=== PATIENT | female | born 1960 | race Caucasian/White ===

== ENCOUNTER 2021-03-12 19:07 | Inpatient (IN) ==
[2021-03-12] MEDS ORDERED: Ondansetron ODT 4 MG TAB.RAPDIS SL PRN (21:54)
[2021-03-12] MEDS ORDERED: Melatonin 3 MG TABLET PO PRN (21:54)
[2021-03-12] MEDS ORDERED: Naloxone 0.4 MG/ML INJ IVP PRN ×2 (21:54→22:48)
[2021-03-12] MEDS: Acetaminophen 325 MG TABLET PO PRN (23:18)
[2021-03-12] MEDS ORDERED: *HR* Labetalol 20 MG/4 ML SYRINGE IVP ONE (23:46)
[2021-03-13] MEDS: *HR* HYDROcodone/Acet 5/325 mg TABLET PO PRN ×3 (00:18→10:45)
[2021-03-13] MEDS ORDERED: Furosemide 40 MG/4 ML VIAL IVP ONE (00:19)
[2021-03-13] MEDS ORDERED: Perflutren Lipid Microsphere 1.3 ML in 0.9 % Sodium Chloride 8.7 ML IVP PRN (01:50)
[2021-03-13] MEDS ORDERED: *HR* Heparin 5,000 UNIT/ML VIAL IVP ONE (04:57)
[2021-03-13] MEDS ORDERED: *HR* Heparin 5,000 UNIT/ML VIAL IVP PRN (04:57)
[2021-03-13] MEDS: Heparin 25,000 UNIT/250 ML 25,000 UNIT/250 ML IV.SOLN IVC SCH (05:49)
[2021-03-13] MEDS: niCARdipine 20 MG/200 ML MLS IVC SCH ×2 (05:51→10:41)
[2021-03-13 06:51] LABS: Hematocrit 26.4 % (35.3-44.9); Hemoglobin 8.8 g/dL (11.5-15.4); Mean Corpuscular HGB Conc 33.3 g/dL (31.6-35.5); Mean Corpuscular Hemoglobin 33.2 pg (28.0-33.3); Mean Corpuscular Volume 99.6 fL (83.0-100.0); Mean Platelet Volume 9.9 fL (9.4-12.4); Platelet Count 163 K/mcL (140-400); Red Blood Count 2.65 M/mcL (3.82-4.97)
[2021-03-13 06:59] LABS: INR 1.2; Prothrombin Time 13.1 Seconds (9.4-12.1)
[2021-03-13 07:03] LABS: Heparin anti-factor XA UFH 1.19 IU/mL (0.30-0.70)
[2021-03-13 07:08] LABS: BUN/Creatinine Ratio 13 (6-26); Blood Urea Nitrogen 15 mg/dL (8-23); Calcium 8.9 mg/dL (8.6-10.3); Carbon Dioxide 25 mEq/L (23-29); Chloride 103 mEq/L (98-107); Glucose 113 mg/dL (70-105); Osmolality,Calculated 286 (280-300); Potassium 3.3 mEq/L (3.5-5.1); Sodium 137 mEq/L (136-145); eGFR For African Americans > 60 (> 60); eGFR For Non-African Americans 50 (> 60)
[2021-03-13] MEDS ORDERED: Ipratropium/Albuterol Neb 3 ML IH PRN (07:38)
[2021-03-13] MEDS: Metoprolol XL (24 HR) Succ 25 MG TAB.ER.24H PO SCH (08:20)
[2021-03-13] MEDS: Aspirin Enteric Coated 81 MG Tablet PO SCH (08:21)
[2021-03-13] MEDS ORDERED: Furosemide 40 MG/4 ML VIAL IVP SCH (09:00)
[2021-03-13] MEDS ORDERED: lisinopriL 5 MG TABLET PO SCH (11:45)
[2021-03-13] MEDS: *HR* Heparin 5,000 UNIT/ML VIAL IVP PRN ×2 (13:09→20:13)
[2021-03-13] MEDS ORDERED: lisinopriL 20 MG TABLET PO SCH (13:59)
[2021-03-13] MEDS: Acetaminophen 325 MG TABLET PO PRN (15:47)
[2021-03-14 02:51] LABS: Bacteria,Urine Many per hpf (None-Few); Bilirubin,Urine Small (Negative); Blood,Urine Trace (Negative); Clarity,Urine Ex.Turbid (Clear); Color,Urine Yellow (Yellow); Glucose,Urine (UA) Normal (Normal); Ketones,Urine Trace mg/dL (Negative); Leukocyte Esterase,Urine Large (Negative); Mucus,Urine Few per lpf (None-Few); Nitrite,Urine Negative (Negative); PH,Urine 5.5 pH Units (5.0-8.0); Protein,Urine >=300 mg/dL (Neg-Trace); RBC,Urine 15-30 per hpf (0-3); Specific Gravity,Urine 1.029 (1.010-1.025); Squamous Epithelial Cell,Urine Moderate per hpf (None-Few); WBC,Urine TNTC per hpf (0-3)
[2021-03-14 03:08] LABS: Basophils # 0.1 K/mcL (0.0-0.2); Basophils % 0.6 %; Eosinophils # 0.2 K/mcL (0.0-0.6); Eosinophils % 2.1 %; Hematocrit 28.8 % (35.3-44.9); Hemoglobin 9.8 g/dL (11.5-15.4); Immature Granulocytes % 0.3 % (0-4); Lymphocytes # 1.5 K/mcL (0.6-4.6); Lymphocytes % 19.6 %; Mean Platelet Volume 10.3 fL (9.4-12.4); Monocytes # 0.7 K/mcL (0.0-1.3); Monocytes % 8.5 %; Neutrophils # 5.4 K/mcL (1.6-8.9); Platelet Count 177 K/mcL (140-400); Red Blood Count 2.88 M/mcL (3.82-4.97); Segmented Neutrophils % 68.9 %; White Blood Count 7.8 K/mcL (4.3-11.1)
[2021-03-14 03:26] LABS: Calcium 9.5 mg/dL (8.6-10.3); Magnesium 2.2 mg/dL (1.6-2.6); Phosphorous 5.3 mg/dL (2.7-4.5); Potassium 3.9 mEq/L (3.5-5.1)
[2021-03-14 05:52] LABS: Thyroid Stimulating Hormone 4.721 mcIU/mL (0.340-5.600)
[2021-03-14] MEDS: Metoprolol XL (24 HR) Succ 25 MG TAB.ER.24H PO SCH (07:54)
[2021-03-14] MEDS: Aspirin Enteric Coated 81 MG Tablet PO SCH (07:54)
[2021-03-14] MEDS ORDERED: lisinopriL 20 MG TABLET PO SCH (09:00)
[2021-03-14] MEDS ORDERED: Furosemide 40 MG TABLET PO SCH (09:00)
[2021-03-14] MEDS: Cefdinir 300 MG CAPSULE PO SCH (11:58)
[2021-03-14] MEDS: Heparin 25,000 UNIT/250 ML 25,000 UNIT/250 ML IV.SOLN IVC SCH (13:00)
[2021-03-14] MEDS: Ipratropium Neb 0.5 MG NEBULIZER IH SCH ×3 (15:43→20:19)
[2021-03-14 15:46] LABS: Potassium,Urine 89.1 mEq/L; Protein/Creatinine Ratio,Urine 0.38 mg/mg (0.00-0.20); Sodium, Urine 24.5 mEq/L
[2021-03-15] MEDS: Ipratropium Neb 0.5 MG NEBULIZER IH SCH ×4 (04:11→22:01)
[2021-03-15 05:47] LABS: Basophils # 0.1 K/mcL (0.0-0.2); Basophils % 0.5 %; Eosinophils # 0.4 K/mcL (0.0-0.6); Eosinophils % 3.2 %; Hematocrit 26.9 % (35.3-44.9); Immature Granulocytes % 0.4 % (0-4); Lymphocytes # 1.5 K/mcL (0.6-4.6); Lymphocytes % 13.5 %; Mean Corpuscular HGB Conc 33.5 g/dL (31.6-35.5); Mean Corpuscular Hemoglobin 33.6 pg (28.0-33.3); Mean Corpuscular Volume 100.4 fL (83.0-100.0); Mean Platelet Volume 10.4 fL (9.4-12.4); Monocytes # 0.8 K/mcL (0.0-1.3); Monocytes % 7.3 %; Neutrophils # 8.3 K/mcL (1.6-8.9); Platelet Count 159 K/mcL (140-400); Red Blood Count 2.68 M/mcL (3.82-4.97); Red Cell Distribution Width 14.6 % (11.5-14.5); Segmented Neutrophils % 75.1 %; White Blood Count 11.1 K/mcL (4.3-11.1)
[2021-03-15 06:05] LABS: Calcium 9.1 mg/dL (8.6-10.3); Potassium 4.3 mEq/L (3.5-5.1)
[2021-03-15] MEDS: Metoprolol XL (24 HR) Succ 25 MG TAB.ER.24H PO SCH (08:04)
[2021-03-15] MEDS: Aspirin Enteric Coated 81 MG Tablet PO SCH (08:04)
[2021-03-15] MEDS: Cefdinir 300 MG CAPSULE PO SCH (11:07)
[2021-03-15] MEDS: Albumin 25% 25gram/100mL 25 GM/100 ML IV.SOLN IVPB SCH ×2 (15:25→23:30)
[2021-03-15] MEDS: Heparin 25,000 UNIT/250 ML 25,000 UNIT/250 ML IV.SOLN IVC SCH (17:41)
[2021-03-15] MEDS: Acetaminophen 325 MG TABLET PO PRN (18:44)
[2021-03-16 05:00] LABS: Basophils # 0.1 K/mcL (0.0-0.2); Basophils % 0.7 %; Eosinophils # 0.4 K/mcL (0.0-0.6); Eosinophils % 4.3 %; Hematocrit 25.4 % (35.3-44.9); Hemoglobin 8.1 g/dL (11.5-15.4); Immature Granulocytes % 0.3 % (0-4); Lymphocytes # 1.8 K/mcL (0.6-4.6); Lymphocytes % 19.6 %; Mean Corpuscular HGB Conc 31.9 g/dL (31.6-35.5); Mean Corpuscular Hemoglobin 32.5 pg (28.0-33.3); Mean Platelet Volume 10.5 fL (9.4-12.4); Monocytes # 0.6 K/mcL (0.0-1.3); Monocytes % 7.1 %; Neutrophils # 6.1 K/mcL (1.6-8.9); Platelet Count 156 K/mcL (140-400); Red Blood Count 2.49 M/mcL (3.82-4.97); Red Cell Distribution Width 14.4 % (11.5-14.5)
[2021-03-16] MEDS: Ipratropium Neb 0.5 MG NEBULIZER IH SCH ×5 (05:04→19:50)
[2021-03-16 05:16] LABS: Calcium 9.6 mg/dL (8.6-10.3); Potassium 4.5 mEq/L (3.5-5.1)
[2021-03-16] MEDS: *HR* Heparin 5,000 UNIT/ML VIAL IVP PRN ×2 (05:24→19:22)
[2021-03-16] MEDS: Aspirin Enteric Coated 81 MG Tablet PO SCH (08:02)
[2021-03-16] MEDS: Metoprolol XL (24 HR) Succ 25 MG TAB.ER.24H PO SCH (08:03)
[2021-03-16] MEDS: Albumin 25% 25gram/100mL 25 GM/100 ML IV.SOLN IVPB SCH ×2 (08:03→16:00)
[2021-03-16] MEDS ORDERED: amLODIPine 5 MG TABLET PO SCH (09:00)
[2021-03-16] MEDS: Cefdinir 300 MG CAPSULE PO SCH (11:25)
[2021-03-16] MEDS: Heparin 25,000 UNIT/250 ML 25,000 UNIT/250 ML IV.SOLN IVC SCH (14:23)
[2021-03-16] MEDS: hydrALAZINE 25 MG TABLET PO SCH ×2 (16:00→23:05)
[2021-03-16] MEDS ORDERED: Albuterol 2.5 MG/3 ML NEBULIZER IH PRN (22:23)
[2021-03-16 22:24] LABS: ABG Base Excess -3 mEq/L (-2 to 3); ABG HCO3 20 mEq/L (21-27); ABG Oxygen Saturation 96 % (95-98); ABG PCO2 29 mmHg (35-45); ABG PH 7.46 pH Units (7.32-7.45); ABG PO2 78 mmHg (85-104); ABG TCO2 21 mEq/L (20-26)
[2021-03-16] MEDS: Ipratropium/Albuterol Neb 3 ML IH SCH (23:14)
[2021-03-17] MEDS ORDERED: *HR* LORazepam 0.5 MG TABLET PO ONE (00:25)
[2021-03-17 01:39] LABS: Basophils # 0.1 K/mcL (0.0-0.2); Basophils % 0.6 %; Eosinophils # 0.3 K/mcL (0.0-0.6); Eosinophils % 2.6 %; Hematocrit 28.3 % (35.3-44.9); Immature Granulocytes % 0.5 % (0-4); Lymphocytes # 1.2 K/mcL (0.6-4.6); Lymphocytes % 11.6 %; Mean Corpuscular HGB Conc 31.8 g/dL (31.6-35.5); Mean Corpuscular Hemoglobin 33.2 pg (28.0-33.3); Mean Corpuscular Volume 104.4 fL (83.0-100.0); Mean Platelet Volume 10.5 fL (9.4-12.4); Monocytes # 0.5 K/mcL (0.0-1.3); Monocytes % 5.1 %; Neutrophils # 8.2 K/mcL (1.6-8.9); Platelet Count 162 K/mcL (140-400); Red Blood Count 2.71 M/mcL (3.82-4.97); Red Cell Distribution Width 14.6 % (11.5-14.5); Segmented Neutrophils % 79.6 %; White Blood Count 10.3 K/mcL (4.3-11.1)
[2021-03-17 02:01] LABS: Calcium 10.5 mg/dL (8.6-10.3); Magnesium 2.2 mg/dL (1.6-2.6); Phosphorous 3.6 mg/dL (2.7-4.5)
[2021-03-17] MEDS: Ipratropium/Albuterol Neb 3 ML IH SCH (03:33)
[2021-03-17] MEDS: hydrALAZINE 25 MG TABLET PO SCH ×2 (08:03→17:03)
[2021-03-17] MEDS: Aspirin Enteric Coated 81 MG Tablet PO SCH (08:04)
[2021-03-17] MEDS: Metoprolol XL (24 HR) Succ 25 MG TAB.ER.24H PO SCH (08:04)
[2021-03-17] MEDS: Acetaminophen 325 MG TABLET PO PRN ×2 (08:12→17:03)
[2021-03-17] MEDS ORDERED: Metoprolol XL (24 HR) Succ 25 MG TAB.ER.24H PO SCH (09:00)
[2021-03-17] MEDS ORDERED: Ipratropium Neb 0.5 MG NEBULIZER ONE (09:33)
[2021-03-17] MEDS: Ipratropium Neb 0.5 MG NEBULIZER IH SCH ×3 (09:34→20:55)
[2021-03-17] MEDS: Heparin 25,000 UNIT/250 ML 25,000 UNIT/250 ML IV.SOLN IVC SCH (10:23)
[2021-03-17] MEDS ORDERED: Furosemide 40 MG/4 ML VIAL IVP ONE (10:56)
[2021-03-17] MEDS: Isosorbide MONOnitrate (24 HR) 30 MG TAB.ER.24H PO SCH (11:36)
[2021-03-17] MEDS: Cefdinir 300 MG CAPSULE PO SCH (11:37)
[2021-03-17] MEDS: *HR* Heparin 5,000 UNIT/ML VIAL SQ SCH (17:04)
[2021-03-18] MEDS: hydrALAZINE 25 MG TABLET PO SCH ×4 (00:04→23:15)
[2021-03-18] MEDS: Acetaminophen 325 MG TABLET PO PRN ×2 (00:05→10:21)
[2021-03-18] MEDS: Ipratropium Neb 0.5 MG NEBULIZER IH SCH ×4 (04:39→21:24)
[2021-03-18 04:59] LABS: Basophils % 0.5 %; Eosinophils # 0.3 K/mcL (0.0-0.6); Eosinophils % 4.2 %; Hemoglobin 7.7 g/dL (11.5-15.4); Immature Granulocytes % 0.3 % (0-4); Lymphocytes # 1.5 K/mcL (0.6-4.6); Lymphocytes % 25.2 %; Mean Corpuscular HGB Conc 30.8 g/dL (31.6-35.5); Mean Corpuscular Hemoglobin 32.8 pg (28.0-33.3); Mean Corpuscular Volume 106.4 fL (83.0-100.0); Mean Platelet Volume 10.6 fL (9.4-12.4); Monocytes # 0.6 K/mcL (0.0-1.3); Monocytes % 9.3 %; Neutrophils # 3.7 K/mcL (1.6-8.9); Platelet Count 148 K/mcL (140-400); Red Blood Count 2.35 M/mcL (3.82-4.97); Segmented Neutrophils % 60.5 %; White Blood Count 6.1 K/mcL (4.3-11.1)
[2021-03-18 05:16] LABS: Magnesium 2.3 mg/dL (1.6-2.6); Phosphorous 5.1 mg/dL (2.7-4.5); Potassium 4.5 mEq/L (3.5-5.1)
[2021-03-18] MEDS: *HR* Heparin 5,000 UNIT/ML VIAL SQ SCH ×2 (07:56→18:31)
[2021-03-18] MEDS: Isosorbide MONOnitrate (24 HR) 30 MG TAB.ER.24H PO SCH (07:56)
[2021-03-18] MEDS: Aspirin Enteric Coated 81 MG Tablet PO SCH (07:57)
[2021-03-18] MEDS: Metoprolol XL (24 HR) Succ 25 MG TAB.ER.24H PO SCH (07:57)
[2021-03-18] MEDS: *HR* HYDROcodone/Acet 5/325 mg TABLET PO PRN (15:35)
[2021-03-18 17:57] LABS: Hematocrit 25.9 % (35.3-44.9); Hemoglobin 8.5 g/dL (11.5-15.4)
[2021-03-18] MEDS: predniSONE 20 MG TABLET PO SCH (18:29)
[2021-03-18 18:52] LABS: Metanephrine, Plasma 0.33 nmol/L (0.00-0.49)
[2021-03-19] MEDS: Ipratropium Neb 0.5 MG NEBULIZER IH SCH ×2 (03:55→10:19)
[2021-03-19] MEDS: *HR* Heparin 5,000 UNIT/ML VIAL SQ SCH (05:16)
[2021-03-19 07:56] LABS: Basophils % 0.3 %; Hematocrit 25.2 % (35.3-44.9); Hemoglobin 8.1 g/dL (11.5-15.4); Immature Granulocytes % 0.5 % (0-4); Lymphocytes # 0.6 K/mcL (0.6-4.6); Lymphocytes % 7.8 %; Mean Corpuscular HGB Conc 32.1 g/dL (31.6-35.5); Mean Corpuscular Hemoglobin 33.5 pg (28.0-33.3); Mean Corpuscular Volume 104.1 fL (83.0-100.0); Mean Platelet Volume 10.9 fL (9.4-12.4); Monocytes # 0.2 K/mcL (0.0-1.3); Monocytes % 2.3 %; Neutrophils # 6.9 K/mcL (1.6-8.9); Platelet Count 166 K/mcL (140-400); Red Blood Count 2.42 M/mcL (3.82-4.97); Red Cell Distribution Width 14.6 % (11.5-14.5); Segmented Neutrophils % 89.1 %; White Blood Count 7.7 K/mcL (4.3-11.1)
[2021-03-19 08:17] LABS: Calcium 10.2 mg/dL (8.6-10.3); Potassium 4.7 mEq/L (3.5-5.1)
[2021-03-19] MEDS: Isosorbide MONOnitrate (24 HR) 30 MG TAB.ER.24H PO SCH (09:26)
[2021-03-19] MEDS: Aspirin Enteric Coated 81 MG Tablet PO SCH (09:26)
[2021-03-19] MEDS: hydrALAZINE 25 MG TABLET PO SCH (09:26)
[2021-03-19] MEDS: Metoprolol XL (24 HR) Succ 25 MG TAB.ER.24H PO SCH (09:26)
[2021-03-19] MEDS: predniSONE 20 MG TABLET PO SCH (09:26)
[2021-03-19] MEDS: Acetaminophen 325 MG TABLET PO PRN (11:16)
[2021-03-19 11:37] VITALS: BP 148/61; PULSE 84; TEMP 97.3; O2SAT 99
== END 2021-03-19 14:34 | disposition home or self-care (01) | DRG 280 ==
LOC: 2NNU → SUATTDRO 21:51 → 2ANU 03-18 13:46
PROVIDERS: ADMIT Internal Medicine; ATTEND Family Medicine

== ENCOUNTER 2021-04-05 02:26 | Inpatient (IN) ==
[2021-04-05] MEDS ORDERED: Ipratropium/Albuterol Neb 3 ML IH ONE (03:16)
[2021-04-05] MEDS ORDERED: Furosemide 40 MG/4 ML VIAL IVP ONE (03:16)
[2021-04-05 03:53] LABS: Basophils % 0.3 %; Eosinophils # 0.2 K/mcL (0.0-0.6); Eosinophils % 1.5 %; Hematocrit 28.4 % (35.3-44.9); Hemoglobin 9.2 g/dL (11.5-15.4); Immature Granulocytes % 0.3 % (0-4); Lymphocytes # 1.3 K/mcL (0.6-4.6); Mean Corpuscular HGB Conc 32.4 g/dL (31.6-35.5); Mean Corpuscular Hemoglobin 33.2 pg (28.0-33.3); Mean Corpuscular Volume 102.5 fL (83.0-100.0); Monocytes # 0.6 K/mcL (0.0-1.3); Monocytes % 5.3 %; Neutrophils # 9.7 K/mcL (1.6-8.9); Platelet Count 148 K/mcL (140-400); Red Blood Count 2.77 M/mcL (3.82-4.97); Segmented Neutrophils % 81.6 %; White Blood Count 11.8 K/mcL (4.3-11.1)
[2021-04-05 04:03] LABS: VBG HCO3 21 mEq/L (21-27); VBG PCO2 33 mmHg (41-51); VBG PH 7.41 pH Units (7.32-7.42); VBG PO2 104 mmHg (25-50)
[2021-04-05 04:14] LABS: Albumin/Globulin Ratio 1.9 (1.1-2.2); Bilirubin,Direct 0.3 mg/dL (0.0-0.2); Bilirubin,Indirect 1.1 mg/dL (0.0-1.0); Bilirubin,Total 1.4 mg/dL (0.3-1.0); Calcium 10.1 mg/dL (8.6-10.3); Globulin 2.6 g/dL (2.4-3.5); Potassium 3.6 mEq/L (3.5-5.1); Total Protein 7.6 g/dL (6.4-8.9); Troponin I 0.03 ng/mL (< 0.04)
[2021-04-05 04:34] LABS: Influenza A PCR Negative (Negative); Influenza B PCR Negative (Negative); Resp. Syncytial Virus PCR Negative (Negative)
[2021-04-05] MEDS ORDERED: Naloxone 0.4 MG/ML INJ IVP PRN (05:11)
[2021-04-05] MEDS ORDERED: Ondansetron 4 MG/2 ML VIAL IVP PRN (05:11)
[2021-04-05 05:54] LABS: SARS-CoV-2 by PCR (In House) Negative (Negative)
[2021-04-05] MEDS ORDERED: amLODIPine 5 MG TABLET PO SCH (09:00)
[2021-04-05] MEDS ORDERED: Metoprolol XL (24 HR) Succ 50 MG TAB.ER.24H PO SCH (09:00)
[2021-04-05] MEDS: Aspirin Enteric Coated 81 MG Tablet PO SCH (09:16)
[2021-04-05] MEDS: Isosorbide MONOnitrate (24 HR) 30 MG TAB.ER.24H PO SCH (09:17)
[2021-04-05] MEDS: hydrALAZINE 25 MG TABLET PO SCH ×3 (09:18→20:33)
[2021-04-05] MEDS: Acetaminophen 325 MG TABLET PO PRN (10:15)
[2021-04-05] MEDS ORDERED: amLODIPine 5 MG TABLET PO ONE (12:30)
[2021-04-05] MEDS ORDERED: Albuterol 2.5 MG/3 ML NEBULIZER IH PRN (12:34)
[2021-04-05] MEDS ORDERED: *HR* Labetalol 20 MG/4 ML SYRINGE IVP ONE (22:34)
[2021-04-06 02:29] LABS: Hematocrit 24.1 % (35.3-44.9); Hemoglobin 7.9 g/dL (11.5-15.4); Mean Corpuscular HGB Conc 32.8 g/dL (31.6-35.5); Mean Corpuscular Hemoglobin 33.6 pg (28.0-33.3); Mean Corpuscular Volume 102.6 fL (83.0-100.0); Mean Platelet Volume 10.1 fL (9.4-12.4); Platelet Count 140 K/mcL (140-400); Red Blood Count 2.35 M/mcL (3.82-4.97); Red Cell Distribution Width 14.9 % (11.5-14.5)
[2021-04-06 02:31] LABS: White Blood Count 5.5 K/mcL (4.3-11.1)
[2021-04-06 02:46] LABS: Calcium 9.6 mg/dL (8.6-10.3); Potassium 3.3 mEq/L (3.5-5.1)
[2021-04-06] MEDS: Aspirin Enteric Coated 81 MG Tablet PO SCH (08:28)
[2021-04-06] MEDS: carvediloL 6.25 MG TABLET PO SCH ×2 (08:28→16:03)
[2021-04-06] MEDS: Isosorbide MONOnitrate (24 HR) 30 MG TAB.ER.24H PO SCH (08:28)
[2021-04-06] MEDS: hydrALAZINE 25 MG TABLET PO SCH ×3 (08:28→20:18)
[2021-04-06] MEDS ORDERED: Furosemide 40 MG/4 ML VIAL IVP SCH (09:00)
[2021-04-06] MEDS ORDERED: amLODIPine 5 MG TABLET PO SCH (09:00)
[2021-04-06 10:31] LABS: Magnesium 2.1 mg/dL (1.6-2.6)
[2021-04-06 12:35] LABS: Hematocrit 24.3 % (35.3-44.9); Hemoglobin 7.9 g/dL (11.5-15.4)
[2021-04-06] MEDS ORDERED: SODIUM CHLORIDE/NAHCO3/KCL/PEG 4,000 ML SOLN.RECON PO ONE (17:00)
[2021-04-06] MEDS: Acetaminophen 325 MG TABLET PO PRN (20:17)
[2021-04-07] MEDS: hydrALAZINE 25 MG TABLET PO SCH ×3 (07:44→22:31)
[2021-04-07] MEDS: carvediloL 6.25 MG TABLET PO SCH ×2 (07:44→16:01)
[2021-04-07] MEDS: Isosorbide MONOnitrate (24 HR) 30 MG TAB.ER.24H PO SCH (07:44)
[2021-04-07 09:02] LABS: Hematocrit 25.8 % (35.3-44.9); Hemoglobin 8.4 g/dL (11.5-15.4); Mean Corpuscular HGB Conc 32.6 g/dL (31.6-35.5); Mean Corpuscular Hemoglobin 33.1 pg (28.0-33.3); Mean Corpuscular Volume 101.6 fL (83.0-100.0); Mean Platelet Volume 10.1 fL (9.4-12.4); Platelet Count 156 K/mcL (140-400); Red Blood Count 2.54 M/mcL (3.82-4.97); Red Cell Distribution Width 14.6 % (11.5-14.5); White Blood Count 6.5 K/mcL (4.3-11.1)
[2021-04-07 09:04] LABS: Calcium 9.9 mg/dL (8.6-10.3); Potassium 3.4 mEq/L (3.5-5.1)
[2021-04-07] MEDS ORDERED: Lidocaine -MPF 2% 5 ML VIAL ONE (09:51)
[2021-04-07] MEDS: Aspirin Enteric Coated 81 MG Tablet PO SCH (12:15)
[2021-04-07] MEDS ORDERED: amLODIPine 5 MG TABLET PO SCH (15:30)
[2021-04-07] MEDS ORDERED: Sodium Bicarbonate 150 MEQ in D5% in Water 850 ML IVC PRN (17:01)
[2021-04-07] MEDS ORDERED: SODIUM CHLORIDE 0.9% IVPB ONE ×2 (18:00→19:00)
[2021-04-07] MEDS ORDERED: FERRIC DERISOMALTOSE IVPB ONE (18:00)
[2021-04-07] MEDS ORDERED: FERUMOXYTOL IVPB ONE (19:00)
[2021-04-07] MEDS: *HR* Acetylcysteine 20% 600 MG/3 ML ORAL SYRINGE PO SCH (22:31)
[2021-04-08 02:06] LABS: Hematocrit 23.4 % (35.3-44.9); Hemoglobin 7.8 g/dL (11.5-15.4); Mean Corpuscular HGB Conc 33.3 g/dL (31.6-35.5); Mean Corpuscular Hemoglobin 34.2 pg (28.0-33.3); Mean Corpuscular Volume 102.6 fL (83.0-100.0); Mean Platelet Volume 10.2 fL (9.4-12.4); Platelet Count 169 K/mcL (140-400); Red Blood Count 2.28 M/mcL (3.82-4.97); Red Cell Distribution Width 14.7 % (11.5-14.5); White Blood Count 5.2 K/mcL (4.3-11.1)
[2021-04-08 02:28] LABS: Calcium 9.8 mg/dL (8.6-10.3); Potassium 3.8 mEq/L (3.5-5.1)
[2021-04-08] MEDS: Aspirin Enteric Coated 81 MG Tablet PO SCH (08:34)
[2021-04-08] MEDS: Isosorbide MONOnitrate (24 HR) 30 MG TAB.ER.24H PO SCH (08:34)
[2021-04-08] MEDS: carvediloL 6.25 MG TABLET PO SCH ×2 (08:34→16:02)
[2021-04-08] MEDS: hydrALAZINE 25 MG TABLET PO SCH ×3 (08:35→21:48)
[2021-04-08] MEDS: *HR* Acetylcysteine 20% 600 MG/3 ML ORAL SYRINGE PO SCH ×2 (08:35→21:47)
[2021-04-08 12:19] LABS: Hematocrit 23.7 % (35.3-44.9); Hemoglobin 7.7 g/dL (11.5-15.4); Mean Corpuscular HGB Conc 32.5 g/dL (31.6-35.5); Mean Corpuscular Hemoglobin 33.8 pg (28.0-33.3); Mean Corpuscular Volume 103.9 fL (83.0-100.0); Mean Platelet Volume 9.5 fL (9.4-12.4); Platelet Count 156 K/mcL (140-400); Red Blood Count 2.28 M/mcL (3.82-4.97); Red Cell Distribution Width 14.9 % (11.5-14.5); White Blood Count 5.3 K/mcL (4.3-11.1)
[2021-04-08] MEDS: Pantoprazole 40 MG VIAL IVP SCH (18:18)
[2021-04-08 19:57] LABS: Hematocrit 22.3 % (35.3-44.9); Hemoglobin 7.4 g/dL (11.5-15.4); Mean Corpuscular HGB Conc 33.2 g/dL (31.6-35.5); Mean Corpuscular Hemoglobin 34.3 pg (28.0-33.3); Mean Corpuscular Volume 103.2 fL (83.0-100.0); Mean Platelet Volume 10.3 fL (9.4-12.4); Platelet Count 171 K/mcL (140-400); Red Blood Count 2.16 M/mcL (3.82-4.97); Red Cell Distribution Width 15.2 % (11.5-14.5); White Blood Count 5.7 K/mcL (4.3-11.1)
[2021-04-09 02:30] LABS: Hematocrit 23.7 % (35.3-44.9); Hemoglobin 7.8 g/dL (11.5-15.4); Mean Corpuscular HGB Conc 32.9 g/dL (31.6-35.5); Mean Corpuscular Hemoglobin 33.8 pg (28.0-33.3); Mean Corpuscular Volume 102.6 fL (83.0-100.0); Mean Platelet Volume 10.2 fL (9.4-12.4); Platelet Count 168 K/mcL (140-400); Red Blood Count 2.31 M/mcL (3.82-4.97)
[2021-04-09 02:48] LABS: Calcium 9.7 mg/dL (8.6-10.3); Potassium 3.6 mEq/L (3.5-5.1)
[2021-04-09] MEDS: Pantoprazole 40 MG VIAL IVP SCH ×2 (05:03→16:42)
[2021-04-09] MEDS: carvediloL 6.25 MG TABLET PO SCH ×2 (08:49→16:42)
[2021-04-09] MEDS: Isosorbide MONOnitrate (24 HR) 30 MG TAB.ER.24H PO SCH (08:49)
[2021-04-09] MEDS: Aspirin Enteric Coated 81 MG Tablet PO SCH (08:49)
[2021-04-09] MEDS: *HR* Acetylcysteine 20% 600 MG/3 ML ORAL SYRINGE PO SCH (08:50)
[2021-04-09] MEDS: hydrALAZINE 25 MG TABLET PO SCH ×3 (08:50→19:58)
[2021-04-09] MEDS ORDERED: 0.9 % Sodium Chloride 250 ML IVC SCH (10:15)
[2021-04-10] MEDS ORDERED: Melatonin 3 MG TABLET PO ONE (00:59)
[2021-04-10 05:00] LABS: Hemoglobin 8.7 g/dL (11.5-15.4); Mean Corpuscular HGB Conc 32.2 g/dL (31.6-35.5); Mean Corpuscular Hemoglobin 32.1 pg (28.0-33.3); Mean Corpuscular Volume 99.6 fL (83.0-100.0); Mean Platelet Volume 10.2 fL (9.4-12.4); Platelet Count 165 K/mcL (140-400); Red Blood Count 2.71 M/mcL (3.82-4.97); Red Cell Distribution Width 16.6 % (11.5-14.5); White Blood Count 6.5 K/mcL (4.3-11.1)
[2021-04-10 05:11] LABS: Calcium 9.5 mg/dL (8.6-10.3); Potassium 3.5 mEq/L (3.5-5.1)
[2021-04-10] MEDS: Pantoprazole 40 MG VIAL IVP SCH ×2 (05:16→17:21)
[2021-04-10] MEDS: Isosorbide MONOnitrate (24 HR) 30 MG TAB.ER.24H PO SCH (07:39)
[2021-04-10] MEDS: Aspirin Enteric Coated 81 MG Tablet PO SCH (07:39)
[2021-04-10] MEDS: hydrALAZINE 25 MG TABLET PO SCH ×3 (07:40→21:14)
[2021-04-10] MEDS: carvediloL 6.25 MG TABLET PO SCH ×2 (07:40→17:21)
[2021-04-10] MEDS: Sodium Bicarbonate 150 MEQ in D5% in Water 1,000 ML IVC SCH (11:10)
[2021-04-10] MEDS ORDERED: *HR* Heparin 10,000 UNIT/10 ML VIAL ONE (13:21)
[2021-04-10] MEDS ORDERED: Heparin 1,000 UNITS/500 mL 500 ML ONE (13:21)
[2021-04-10] MEDS ORDERED: 0.9 % Sodium Chloride 1,000 ML ONE (13:21)
[2021-04-10] MEDS ORDERED: ISOVUE-370 200 ML INFUS..BTL ONE (13:21)
[2021-04-10] MEDS ORDERED: Nitroglycerin 1,000 MCG/5 ML VIAL IV ONE (13:22)
[2021-04-10] MEDS ORDERED: *HR* Midazolam HCl 2 MG/2 ML VIAL ONE (13:34)
[2021-04-10] MEDS ORDERED: *HR* FentaNYL (PF) 100 MCG/2 ML VIAL ONE (13:34)
[2021-04-10] MEDS ORDERED: 0.9 % Sodium Chloride 1,000 ML IVC SCH (14:30)
[2021-04-11] MEDS: Sodium Bicarbonate 150 MEQ in D5% in Water 1,000 ML IVC SCH (03:40)
[2021-04-11 03:53] LABS: Calcium 8.7 mg/dL (8.6-10.3); Potassium 3.1 mEq/L (3.5-5.1)
[2021-04-11 04:05] LABS: Hematocrit 26.6 % (35.3-44.9); Hemoglobin 8.6 g/dL (11.5-15.4); Mean Corpuscular HGB Conc 32.3 g/dL (31.6-35.5); Mean Corpuscular Hemoglobin 32.3 pg (28.0-33.3); Mean Platelet Volume 10.5 fL (9.4-12.4); Platelet Count 180 K/mcL (140-400); Red Blood Count 2.66 M/mcL (3.82-4.97); Red Cell Distribution Width 16.5 % (11.5-14.5); White Blood Count 5.8 K/mcL (4.3-11.1)
[2021-04-11] MEDS: Pantoprazole 40 MG VIAL IVP SCH (06:10)
[2021-04-11] MEDS: Aspirin Enteric Coated 81 MG Tablet PO SCH (07:27)
[2021-04-11] MEDS: carvediloL 6.25 MG TABLET PO SCH (07:27)
[2021-04-11] MEDS: hydrALAZINE 25 MG TABLET PO SCH ×2 (07:27→14:04)
[2021-04-11] MEDS: Isosorbide MONOnitrate (24 HR) 30 MG TAB.ER.24H PO SCH (07:27)
[2021-04-11 11:08] VITALS: BP 145/60; PULSE 71; TEMP 97.7; O2SAT 96
[2021-04-11] MEDS: Acetaminophen 325 MG TABLET PO PRN (11:42)
== END 2021-04-11 14:12 | disposition home or self-care (01) | DRG 286 ==
LOC: EMEROOARM 02:26 → 2ANU 02:26 → SUATTDRO 05:05 → 2ANU 05:35
PROVIDERS: ADMIT Student in an Organized Health Care Education/Training Program; ATTEND Family Medicine